=== PATIENT | female | born 1950 | race Caucasian/White ===

== ENCOUNTER 2016-12-21 07:16 | Inpatient (IN) ==
[2016-12-21] MEDS ORDERED: IOPAMIDOL 100 ML BOTTLE IV ONE (07:17)
--- NOTE | 2016-12-21 07:38 | Emergency Department Note ---
Abdominal Pain HPI - General Chief Complaint: Abdominal Pain Stated Complaint: Abdominal pain Time Seen by Provider: 12/21/16 07:28 Source: patient Mode of arrival: ambulatory Limitations: no limitations - History of Present Illness HPI Narrative: 56-year-old female with a 2 day history of abdominal pain and constipation. Having a small amount of diarrhea and very hard stools small amount. Excruciatingly painful to have a bowel movement. History of hemorrhoids. - Related Data Home Medications Medication Instructions Recorded Confirmed Cetirizine HCl [24Hour Allergy] 10 mg PO HS 12/21/16 12/21/16 Insulin Glargine, Human [Lantus] 17 unit SC BID 12/21/16 12/21/16 Oxybutynin Chloride [Ditropan] 5 mg PO TID 12/21/16 12/21/16 metFORMIN [Glucophage] 500 mg PO BIDCC 12/21/16 12/21/16 Allergies Allergy/AdvReac Type Severity Reaction Status Date / Time codeine AdvReac Nausea Verified 12/21/16 07:20 Review of Systems All systems ED: reviewed and negative except as stated. Abdominal Pain PMH - Past Medical History Attestation: Yes: The following information was validated with the patient. Medical history: Reports: diabetes, other (Pancreatitis, urinary incontinence) Surgical history ED: Reports: cholecystectomy - Social History Smoking status: Current some day smoker Drug use: Reports: marijuana Physical Exam Some distress secondary to abdominal pain. Conjunctive are clear sclerae nonicteric. No nasal discharge or congestion. Oropharynx pink and moist. Heart is regular rate and rhythm no murmurs appreciated. Lungs clear to auscultation bilaterally without wheezes rales rhonchi or respiratory distress. Abdomen soft mildly diffusely tender but especially suprapubic. Rectal exam shows several large extra hemorrhoids none of which are actively bleeding. No pedal edema. +2 radial pulse. Alert and oriented - General Limitations: no limitations Course Vital Signs Temperature 97.9 F 12/21/16 07:17 Pulse Rate 97 H 12/21/16 07:17 Respiratory Rate 18 12/21/16 07:17 Blood Pressure 177/73 12/21/16 07:17 Pulse Oximetry (%) 99 12/21/16 07:17 Temperature 97.9 F 12/21/16 07:17 Pulse Rate 97 H 12/21/16 07:17 Respiratory Rate 18 12/21/16 07:17 Blood Pressure 177/73 12/21/16 07:17 Pulse Oximetry (%) 99 12/21/16 07:17 Abdominal Pain - Radiology Data Radiology results reviewed: Yes I reviewed the patient's radiology results. X-ray of the abdomen 2 views shows copious stool but normal bowel gas pattern Disposition Pt seen by LPN HOME HEALTH/PA only: No (MD only) Summary: Initially treated with lidocaine jelly topically and attempted manual disimpaction by nursing staff but there was not a significant amount of stool in the rectal vault. Nursing reports that it was like popcorn residue on the inside the rectal vault. So, enema was attempted. She is sitting on bedside commode currently. Because of the severe amount of pain that she is in were going to go ahead and start IV fluids, do pain medicine, get laboratory and a CT scan of the abdomen and pelvis make sure not missing anything. These are ordered pending at shift change. Patient will be checked out to Dr. Jay Huitron for further evaluation and care. Disposition: Still a Patient Condition: Fair Referrals: Gerard Meyer MD [Primary Care Provider] -
[2016-12-21] MEDS ORDERED: LIDOCAINE JEL 2% 1 TUBE 30GM TOPICAL ONE (07:40)
[2016-12-21] MEDS ORDERED: MINERAL OIL 1 DOSE ENEMA PR ONE (07:40)
[2016-12-21] MEDS ORDERED: FLEETS ADULT ENEMA PR ONE (08:19)
[2016-12-21] MEDS ORDERED: 0.9 % SODIUM CHLORIDE 1,000 ML IV ONE ×3 (08:28→14:30)
--- NOTE | 2016-12-21 08:31 | XRay Report ---
CLINICAL INFORMATION: Constipation. Abdominal pain. TECHNIQUE: Supine and upright abdomen COMPARISON: None. FINDINGS: Gas and fecal material within the colon. No dilated gas-filled small bowel. No air-fluid levels. No pneumoperitoneum. No biliary or portal venous gas. No pneumatosis. There are surgical clips in the right upper abdominal quadrant. There are endovascular occlusion coils in the mid abdomen IMPRESSION: Negative abdomen Interpreted and Authenticated by: Pineda Mcleod 12/21/16
[2016-12-21] MEDS ORDERED: KETOROLAC 30 MG/ML VIAL IV ONE (08:34)
[2016-12-21] MEDS ORDERED: INSULIN REGULAR, HUMAN 1 UNIT/0.01 ML UNIT ONE (08:59)
[2016-12-21 09:17] LABS: Basophils # (Auto) 0 K/mcL (0.0-0.3); Basophils % (Auto) 0.3 % (0.0-2.0); Eosinophils # (Auto) 0 K/mcL (0.0-0.7); Eosinophils % (Auto) 0.3 % (0.0-7.0); Granulocytes % (Auto) 83.8 % (38.0-78.0); Lymphocytes # (Auto) 1.7 K/mcL (1.5-4.8); Lymphocytes % (Auto) 13.3 % (15.5-49.0); Mean Cell Volume 86.7 fL (80.0-100.0); Mean Corpuscular HGB Conc 33.8 g/dL (31.0-36.0); Mean Corpuscular Hemoglobin 29.3 pg (26.0-34.0); Monocytes # (Auto) 0.3 K/mcL (0.1-0.9); Monocytes % (Auto) 2.3 % (1.0-12.0); Platelet Count 294 K/mcL (140-440)
[2016-12-21 09:38] LABS: ALT/SGPT 9 U/l (0-40); Albumin 4.7 gm/dL (3.2-5.2); Albumin/Globulin Ratio 1.1 (1.0-2.3); Alkaline Phosphatase 158 U/L (39-117); Blood Urea Nitrogen 10 mg/dl (8-23); Lipase 19 U/L (7-60); Magnesium 1.8 mg/dL (1.6-2.5)
[2016-12-21 10:13] LABS: C-Reactive Protein 1.2 mg/dl (0.0-0.8)
--- NOTE | 2016-12-21 11:30 | Cat Scan Report ---
CLINICAL INFORMATION: Abdominal pain. Severe constipation. COMPARISON: Plain film examination dated 12/21/2016 TECHNIQUE: Axial images were obtained through the abdomen and pelvis. Sagittally and coronally reformatted images. 80 mL nonionic contrast material injected intravenously. Oral contrast material was given FINDINGS: Lung bases are negative. No parenchymal infiltrate or mass. No pleural fluid. No pericardial fluid. Negative liver. No focal intrahepatic abnormality. Liver contour is smooth. No evidence for cirrhosis. No hepatic mass. Gallbladder has been removed. Common bile duct is dilated to 10 mm. No detectable choledocholithiasis. No intrahepatic bile duct dilatation. Negative spleen. No splenomegaly. Normal enhancement of portal vein. Splenic vein is not well visualized Pancreas is poorly visualized. Findings suggest previous partial pancreatectomy. There are surgical clips and endovascular occlusion coils present. Negative adrenal glands. Kidneys are negative. No solid or cystic mass. No hydronephrosis. No calculi. There is mild cortical irregularity bilaterally may indicate chronic bilateral nephritis. Uterus is present. No adnexal mass. There is prominent fecal material within the rectum. Findings may indicate distal colonic, rectal impaction. Descending colon, transverse colon and ascending colon are negative. No abnormal fecal volume. No diverticulitis. No appendicitis. Small bowel is negative. No mechanical small bowel obstruction. Dominant aorta is negative. No retroperitoneal or mesenteric lymphadenopathy. No inguinal or abdominal wall hernia. Degenerative disc disease at L5-S1. No lumbar compression fractures. No sacral or pelvic abnormality. IMPRESSION: 1. Increased fecal material in the rectum. Findings are consistent with rectal impaction. Colon is otherwise negative. Normal fecal volume within the ascending colon, transverse colon, descending colon 2. Mildly dilated common bile duct. Previous cholecystectomy. No intrahepatic bile duct dilatation. Interpreted and Authenticated by: Pineda Mcleod 12/21/16
[2016-12-21 11:56] LABS: Appearance,Urine CLEAR; Bacteria,Urine 0 /hpf (0); Bilirubin,Urine NEG (NEG); Color,Urine STRAW; Glucose,Urine (UA) >=500 mg/dL (NEG); Leukocyte Esterase,Urine NEG /uL (NEG); Nitrate,Urine NEG (NEG); Protein,Urine 100 mg/dL (NEG); Specific Gravity,Urine 1.029 (1.000-1.035); Urine Blood NEG mg/dL (<0.03); Urine RBC 1 /hpf (0-1); Urine Squamous Epithelial Cell < 1 /hpf (0-4); Urine WBC 2 /hpf (0-4); Urobilinogen,Urine NEG (NEG)
--- NOTE | 2016-12-21 12:44 | Emergency Department Note ---
Abdominal Pain HPI - General Chief Complaint: Abdominal Pain Stated Complaint: Abdominal pain Time Seen by Provider: 12/21/16 07:28 Source: patient Mode of arrival: ambulatory Limitations: no limitations - Related Data Home Medications Medication Instructions Recorded Confirmed Cetirizine HCl [24Hour Allergy] 10 mg PO HS 12/21/16 12/21/16 Insulin Glargine, Human [Lantus] 17 unit SC BID 12/21/16 12/21/16 Oxybutynin Chloride [Ditropan] 5 mg PO TID 12/21/16 12/21/16 metFORMIN [Glucophage] 500 mg PO BIDCC 12/21/16 12/21/16 Allergies Allergy/AdvReac Type Severity Reaction Status Date / Time codeine AdvReac Nausea Verified 12/21/16 07:20 Abdominal Pain PMH - Past Medical History Medical history: Reports: diabetes, other (Pancreatitis, urinary incontinence) - Social History Drug use: Reports: marijuana Physical Exam - General Limitations: no limitations Course Course Narrative: Patient given fleets enema in ED. She was subsequently incontinent of stool, had a few small popcorn size stool particles come out. She had a second bowel movement in the radiology department however on the CT scan still did have moderate amount of stool, significant left lower abdominal discomfort and elevated lactate level. She is being admitted this point secondary to high lactate level and elevated white blood cell count. Discussed with Dr. Altamirano Vital Signs Temperature 97.9 F 12/21/16 07:17 Pulse Rate 97 H 12/21/16 07:17 Respiratory Rate 18 12/21/16 07:17 Blood Pressure 177/73 12/21/16 07:17 Pulse Oximetry (%) 99 12/21/16 07:17 Temperature 97.9 F 12/21/16 07:17 Pulse Rate 83 12/21/16 12:01 Respiratory Rate 25 H 12/21/16 12:01 Blood Pressure 169/58 12/21/16 12:01 Pulse Oximetry (%) 93 12/21/16 12:01 Abdominal Pain - [facility] Narrative Medical decision making narrative: impressions abdominal pain left lower quadrant with elevated white blood cell co. - Lab Data Result diagrams: 12/21/16 08:48 12/21/16 08:48 Lab Results 12/21/16 12/21/16 12/21/16 Range/Units 08:48 08:48 08:48 WBC 12.9 H (4.5-11.0) K/mcL RBC 5.10 (4.00-5.20) M/mcL Hgb 14.9 (12.0-15.0) g/dL Hct 44.2 (36.0-48.0) % POC Hct TNP MCV 86.7 (80.0-100.0) fL MCH 29.3 (26.0-34.0) pg MCHC 33.8 (31.0-36.0) g/dL RDW 13.0 (11.5-14.5) % Plt Count 294 (140-440) K/mcL MPV 8.2 (7.4-10.4) fL Gran % 83.8 H (38.0-78.0) % Lymph % (Auto) 13.3 L (15.5-49.0) % [place] % (Auto) 2.3 (1.0-12.0) % Eos % (Auto) 0.3 (0.0-7.0) % Baso % (Auto) 0.3 (0.0-2.0) % Gran # 10.8 H (1.8-8.0) K/mcL Lymph # (Auto) 1.7 (1.5-4.8) K/mcL [place] # (Auto) 0.3 (0.1-0.9) K/mcL Eos # (Auto) 0 (0.0-0.7) K/mcL Baso # (Auto) 0 (0.0-0.3) K/mcL VBG Lactic Acid 4.7 H* (0.5-2.2) mmol/L POC Sodium TNP Sodium 135 (133-145) mmol/L POC Potassium TNP Potassium 3.6 (3.3-5.1) mmol/L POC Chloride TNP Chloride 94 L (96-108) mmol/L Carbon Dioxide 17 L (22-30) mmol/L POC Total CO2 TNP Anion Gap 24.0 H (8-16) POC BUN TNP BUN 10 (8-23) mg/dl Creatinine 0.8 (0.6-1.1) mg/dl POC Creatinine TNP GFR Calculation 77 Glucose 397 H (70-105) mg/dL POC Glucose TNP Calcium 9.4 (8.6-10.4) mg/dl POC WB Ioniz Calcium TNP Magnesium 1.8 (1.6-2.5) mg/dL Total Bilirubin 0.8 (0.0-1.0) mg/dL AST 11 (0-37) U/l ALT 9 (0-40) U/l Alkaline Phosphatase 158 H (39-117) U/L C-Reactive Protein (0.0-0.8) mg/dl Total Protein 8.9 H (5.9-8.4) gm/dL Albumin 4.7 (3.2-5.2) gm/dL Globulin 4.2 H (2.2-3.7) gm/dL Albumin/Globulin Ratio 1.1 (1.0-2.3) Lipase 19 (7-60) U/L Urine Color Urine Appearance Urine pH (5.0-9.0) Ur Specific [place] (1.000-1.035) Urine Protein (NEG) mg/dL Urine Glucose (UA) (NEG) mg/dL Urine Ketones (NEG) mg/dL Urine Occult Blood (<0.03) mg/dL Urine Nitrate (NEG) Urine Bilirubin (NEG) mg/dL Urine Urobilinogen (NEG) mg/dL Ur Leukocyte Esterase (NEG) /uL Urine RBC (0-1) /hpf Urine WBC (0-4) /hpf Ur Squamous Epith Cells (0-4) /hpf Urine Bacteria (0) /hpf Ur Culture Indicated? 12/21/16 12/21/16 Range/Units 08:48 11:22 WBC (4.5-11.0) K/mcL RBC (4.00-5.20) M/mcL Hgb (12.0-15.0) g/dL Hct (36.0-48.0) % POC Hct MCV (80.0-100.0) fL MCH (26.0-34.0) pg MCHC (31.0-36.0) g/dL RDW (11.5-14.5) % Plt Count (140-440) K/mcL MPV (7.4-10.4) fL Gran % (38.0-78.0) % Lymph % (Auto) (15.5-49.0) % [place] % (Auto) (1.0-12.0) % Eos % (Auto) (0.0-7.0) % Baso % (Auto) (0.0-2.0) % Gran # (1.8-8.0) K/mcL Lymph # (Auto) (1.5-4.8) K/mcL [place] # (Auto) (0.1-0.9) K/mcL Eos # (Auto) (0.0-0.7) K/mcL Baso # (Auto) (0.0-0.3) K/mcL VBG Lactic Acid (0.5-2.2) mmol/L POC Sodium Sodium (133-145) mmol/L POC Potassium Potassium (3.3-5.1) mmol/L POC Chloride Chloride (96-108) mmol/L Carbon Dioxide (22-30) mmol/L POC Total CO2 Anion Gap (8-16) POC BUN BUN (8-23) mg/dl Creatinine (0.6-1.1) mg/dl POC Creatinine GFR Calculation Glucose (70-105) mg/dL POC Glucose Calcium (8.6-10.4) mg/dl POC WB Ioniz Calcium Magnesium (1.6-2.5) mg/dL Total Bilirubin (0.0-1.0) mg/dL AST (0-37) U/l ALT (0-40) U/l Alkaline Phosphatase (39-117) U/L C-Reactive Protein 1.2 H (0.0-0.8) mg/dl Total Protein (5.9-8.4) gm/dL Albumin (3.2-5.2) gm/dL Globulin (2.2-3.7) gm/dL Albumin/Globulin Ratio (1.0-2.3) Lipase (7-60) U/L Urine Color Straw Urine Appearance Clear Urine pH 6.0 (5.0-9.0) Ur Specific [place] 1.029 (1.000-1.035) Urine Protein 100 A (NEG) mg/dL Urine Glucose (UA) >=500 A (NEG) mg/dL Urine Ketones 20 A (NEG) mg/dL Urine Occult Blood Neg (<0.03) mg/dL Urine Nitrate Neg (NEG) Urine Bilirubin Neg (NEG) mg/dL Urine Urobilinogen Neg (NEG) mg/dL Ur Leukocyte Esterase Neg (NEG) /uL Urine RBC 1 (0-1) /hpf Urine WBC 2 (0-4) /hpf Ur Squamous Epith Cells < 1 (0-4) /hpf Urine Bacteria 0 (0) /hpf Ur Culture Indicated? No Disposition Pt seen by [employer]PL[employer]LECTR[employer] REPAIRER/PA only: No Disposition: Xfer As Outpt/Obs ([facility]) Condition: Fair Referrals: Gerard Meyer MD [Primary Care Provider] -
[2016-12-21] MEDS ORDERED: metroNIDAZOLE 500 MG/100 ML BAG IV SCH (13:45)
[2016-12-21] MEDS ORDERED: CIPROFLOXACIN 400 MG/200 ML BAG IV SCH (13:45)
--- NOTE | 2016-12-21 14:03 | Internal Med History&Physical ---
Medical - H&P: HPI Patient information: Note initiated : 12/21/16 at 1:58 pm Service Date, if different from initiated Date: [] Patient: Lisette Guzman a 66 y/o F admitted on for Abd Pain. Chief Complaint: [] History of present illness: Ms. Guzman is a 66 year old F with h/o DM, presents to the ER with complaints of pain in the rectal region x 2 days and inability to pass stools The patient notes that she was doing well uptill 2 days ago, she then started having sever pain in the rectal region, pain was severe, worse with bowel movements, sharp non radiating. The pain progressively got worse and she therefore presented to the ER for further evaluation. She was unable to pass any stools as per her due to the rectal pain. In the ER the patient had a rectal exam done which showed some popcorn like stools, a lidocaine jelly given and enema given with not much relive. Labs show mildly elevated wbc count, elevated lactic acid to 4.7, and High anion gap. Her CT Scan was done which was negative except for stools in the rectal valut. The patient admits to h/o hemorrhoids, notes she had a neg colonoscopy 1 year ago. NO h/o trauma to the rectal region, denies any history of constipation in the past. The patient was admitted to the hospital in light of lactic acidosis and elevated wbc count. Her UA is neg, CXR pending, but she is not hpoxic not does report any cough. Review of systems: CONSTITUTIONAL: No weight loss, admits to subjective sensation of fever and chills. HEENT: Eyes: No visual loss, blurred vision, double vision or yellow sclerae. Ears, Nose, Throat: No hearing loss, sneezing, congestion, runny nose or sore throat. SKIN: No rash or itching. CARDIOVASCULAR: No chest pain, chest pressure or chest discomfort. No palpitations or edema. RESPIRATORY: No shortness of breath, cough or sputum. GASTROINTESTINAL: No nausea, vomiting or diarrhea. admits to stool seepage, constipation and rectal pain. GENITOURINARY: Denies Burning on urination. Blood in urine, or foul smelling urine NEUROLOGICAL: No headache, dizziness, syncope, paralysis, tremors, numbness or tingling in the extremities. No change in bowel or bladder control. MUSCULOSKELETAL: No muscle, back pain, joint pain or stiffness. HEMATOLOGIC: No bleeding or bruising. No enlarged nodes PSYCHIATRIC: Depression present after loss of daughter and partner. ENDOCRINOLOGIC: No reports of sweating, cold or heat intolerance. No polyuria or polydipsia. ALLERGIES: No hives, eczema or rhinitis. Skin: No rash, no jaundice, cyanosis or pallor. Medical - H&P: PMH Medical history: DM h/o pancreattiis No CAD< No CVA Surgical history: h/o cholecystectomy. Pertinent family history: Aunt and grandfather with DM, Daughter with Ca breast, Sister with Ca Breast. Social history: Ex smoker, quit 20 yrs ago denies etoh, admits to daily use of THC. no other substances lives by self. Medical - H&P: Meds Home Medications Medication Instructions Recorded Confirmed Type Cetirizine HCl [24Hour Allergy] 10 mg PO HS 12/21/16 12/21/16 History Insulin Glargine, Human [Lantus] 17 unit SC BID 12/21/16 12/21/16 History Oxybutynin Chloride [Ditropan] 5 mg PO TID 12/21/16 12/21/16 History metFORMIN [Glucophage] 500 mg PO BIDCC 12/21/16 12/21/16 History Allergies Allergy/AdvReac Type Severity Reaction Status Date / Time codeine AdvReac Nausea Verified 12/21/16 07:20 Medical - H&P: Exam - Constitutional Vitals: Temp Pulse Resp BP Pulse Ox 97.9 F 77 17 176/68 98 12/21/16 07:17 12/21/16 13:01 12/21/16 13:01 12/21/16 13:01 12/21/16 13:01 Exam: GENERAL: The patient is a well-developed, well-nourished in mild distress . Is alert and oriented x3. VITAL SIGNS: Reviewed and as noted elsewhere. HEENT: Head is normocephalic and atraumatic. Extraocular muscles are intact. Pupils are equal, round, and reactive to light. Nares appeared normal. Mouth without lesions . Mucous membranes are dry NECK: Normal to inspection, Supple, No lymphadenopathy or thyromegaly. LUNGS: Air entry equal on both sides, no wheezing, crackles or rhonchi noted. No accessory muscles of respiration, mildly tachypneic, HEART: Regular rate and rhythm normal, S1 and S2 heard, no Gallop, S3 or Rub Noted, No Gross murmur heard. ABDOMEN: Soft, nontender, and nondistended. Positive bowel sounds. No hepatosplenomegaly was noted. Rectal Exam: soft stools with some popcorn like fragments, hemorrhorids noted, some blood on the examining finger, Patient did not allow complete exam, unable to determine if fissure is present. EXTREMITIES: No cyanosis, clubbing, rash, lesions or edema. NEUROLOGIC: Cranial nerves II through XII are grossly intact. Motor and Sensory System Grossly Intact PSYCHIATRIC: Normal affect, Normal Mood. Appropriate Behavior. SKIN: No ulceration or wounds noted, No jaundice, No rash noted. Medical - H&P: Reslt - Labs CBC & Chem 7: 12/21/16 08:48 12/21/16 08:48 Labs: Short CBC 12/21/16 Range/Units 08:48 WBC 12.9 H (4.5-11.0) K/mcL Hgb 14.9 (12.0-15.0) g/dL Hct 44.2 (36.0-48.0) % Plt Count 294 (140-440) K/mcL BMP 12/21/16 08:48 Sodium 135 Potassium 3.6 Chloride 94 L Carbon Dioxide 17 L BUN 10 Creatinine 0.8 Glucose 397 H Calcium 9.4 Liver Function 12/21/16 Range/Units 08:48 Total Bilirubin 0.8 (0.0-1.0) mg/dL AST 11 (0-37) U/l ALT 9 (0-40) U/l Alkaline Phosphatase 158 H (39-117) U/L Albumin 4.7 (3.2-5.2) gm/dL Urine 12/21/16 Range/Units 11:22 Urine Color Straw Urine Appearance Clear Urine pH 6.0 (5.0-9.0) Ur Specific [place] 1.029 (1.000-1.035) Urine Protein 100 A (NEG) mg/dL Urine Glucose (UA) >=500 A (NEG) mg/dL - ABG Interpretation -: ABG interpreted by me Interpretation: respiratory alkalosis, metabolic acidosis (high anion gap) Medical - H&P: A/P - Narrative A/P Narrative: A/P High anion gap Acidosis: Due to lactic acid, ABG done shows lactic acid of 3.5, in the ER was 4.7 (fluids were given) Lactic acidosis. : Etiology infection, perianal region. IV fluids, blood cx obtained, CXR ordered, IV cipro and flagyl for now. Respiratory alkalosis: Noted on abg due to pain Rectal pain: LIkely from fissure or hemorrhoids. Hemorrhoids vs Anal Fissure: Topical lidocaine and NTG for now, Gen Surgery eval to see if any surgical intervention needed. Constipation: Medical treatment, no obstruction on CT Scan, senna, Glycerin suppositories. Diabetes : Resume insulin, sliding scale. Elevated tprot likely from dehydratio, will monitor. DVT hep sq Diet carb restricted Full code.
[2016-12-21] MEDS ORDERED: metroNIDAZOLE 500 MG/100 ML BAG IV ONE (14:04)
[2016-12-21] MEDS ORDERED: IPRATROPIUM/ALBUTEROL 3 ML AMPUL.NEB NEB PRN (14:30)
[2016-12-21] MEDS ORDERED: GLYCERIN, ADULT 1 SUPP.RECT PR ONE (14:30)
[2016-12-21] MEDS ORDERED: DEXTROSE 50% 50 ML VIAL IV PRN (14:30)
[2016-12-21] MEDS ORDERED: ZOLPIDEM 5 MG TABLET PO PRN (14:30)
[2016-12-21] MEDS ORDERED: ONDANSETRON 4 MG/2 ML VIAL IV PRN (14:30)
[2016-12-21] MEDS ORDERED: MAGNESIUM HYDROXIDE 30 ML ORAL.SUSP PO PRN (14:30)
[2016-12-21] MEDS ORDERED: NALOXONE HCL 0.4 MG/ML VIAL IV PRN (14:30)
[2016-12-21] MEDS ORDERED: ACETAMINOPHEN 325 MG TABLET PO PRN (14:30)
[2016-12-21] MEDS ORDERED: NITROGLYCERIN 0.2 MG/HR PATCH TOPICAL SCH (15:00)
--- NOTE | 2016-12-21 15:24 | General Surgery Consult Note ---
History of Present Illness Patient information: Note initiated : 12/21/16 at 3:22 pm Service Date, if different from initiated Date: [] Patient: Lisette Guzman 66 y/o F admitted on 12/21/16 for Abd Pain. Chief Complaint: [] Reason for consult: other (constipation) History of present illness: 66-year-old female admitted with severe constipation; metabolic acidosis; and mild leukocytosis. The patient has a 3 day history of severe constipation. She states that she had some fever and chills. Her last regular bowel movement was Tuesday. She has not had rectal bleeding. She denies abdominal pain nausea or vomiting. She has not had any difficulty with urination. She has not had rectal bleeding in the past. She is admitted for evaluation and treatment. Review of Systems - Constitutional chills, fever(s), malaise - EENT Nose, mouth and throat: no abnormal hearing, no dysphagia, no hoarseness, no vertigo - Cardiovascular no chest pain at rest, no chest pain with activity, no dyspnea on exertion, no palpatations, no rapid heart rate, no syncope - Respiratory dyspnea on exertion, no wheezing - Gastrointestinal abdominal pain, bloating, change in bowel habits, constipation, cramping, early satiety, nausea - Genitourinary Genitourinary: no difficulty voiding, no urinary frequency, no urinary incontinence - Integumentary no change in hair, no changing lesions, no lesions, no pruritus, no rash - Neurological no confusion, no convulsions, no dizziness, no headache(s), no numbness, no syncope, no vertigo - Psychiatric no anxiety, no confusion, no depression - Endocrine fatigue, no palpitations - Hematologic/Lymphatic no easy bleeding, no easy bruising, no lymphadenopathy - Allergic/Immunologic no tongue swelling, no throat swelling, no itchy eyes, no uticaria, no wheezing , no lip swelling Past History Past medical history: Diabetes mellitus Denies heart, lung or kidney disease Past surgical history: Cholecystectomy with stent placement 10 years ago Hysterectomy Past family history: Mother in her 50s of unknown cause Father at age 82 of heart disease Past social history: Retired caregiver Denies tobacco use Frequent marijuana use Denies alcohol use Medications and Allergies Home Medications Medication Instructions Recorded Confirmed Type Cetirizine HCl [24Hour Allergy] 10 mg PO HS 12/21/16 12/21/16 History Insulin Glargine, Human [Lantus] 17 unit SC BID 12/21/16 12/21/16 History Oxybutynin Chloride [Ditropan] 5 mg PO TID 12/21/16 12/21/16 History metFORMIN [Glucophage] 500 mg PO BIDCC 12/21/16 12/21/16 History Allergies Allergy/AdvReac Type Severity Reaction Status Date / Time codeine AdvReac Nausea Verified 12/21/16 07:20 Exam Temp Pulse Resp BP Pulse Ox 97.9 F 97 H 29 H 189/73 99 12/21/16 14:20 12/21/16 14:20 12/21/16 14:20 12/21/16 14:20 12/21/16 14:20 - General physical appearance well developed, well nourished, moderate distress - Eyes PERRL, normal ocular movement. negative: icteric - ENT normal pinna, normal nares, normal mucosa, no hearing loss, no congestion, poor senior living - Head Head exam IM: Present: atraumatic, normal inspection, normocephalic - Neck no masses, no bruits, trachea midline, no lymphadectomy, no venous distension - Cardiovascular Cardiovascular exam IM: Present: +S1, +S2. Absent: normal rate and rhythm, irregular rhythm, JVD, systolic murmur - Respiratory normal expansion, normal respiratory effort, clear to percussion, clear to auscultation - Abdomen Abdomen: Present: soft, tender (Mild suprapubic tenderness but no masses), bowel sounds Hernia: Present: none - Genitourinary Present: normal external genitalia - Integumentary Present: no rash, no growths, no abnormal pigmentation - Neurologic Present: normal coordination, normal sensation - Musculoskeletal Present: normal gait, normal posture - Psychiatric Present: oriented to time, oriented to person, oriented to place, speech is normal, memory intact Results - Labs 12/21/16 08:48 12/21/16 08:48 All other labs normal. Assessment and Plan (1) Constipation by outlet dysfunction milk and molasses enema now Gastrografin enema in the morning Continue antibiotics and hydration Status: Acute (2) Diabetes mellitus Status: Acute (3) Metabolic acidosis Continue antibiotics and hydration Status: Acute
--- NOTE | 2016-12-21 15:26 | XRay Report ---
CLINICAL INFORMATION: Leukocytosis TECHNIQUE: AP upright portable chest x-ray COMPARISON: None. FINDINGS: Lungs are negative. No focal pulmonary parenchymal infiltrate or mass. Heart size and vascularity are normal. No pulmonary edema. No pulmonary congestion. Radha and mediastinum are negative. No pleural fluid IMPRESSION: Negative AP portable chest x-ray Interpreted and Authenticated by: Pnieda Mcleod 12/21/16
[2016-12-21] MEDS: CIPROFLOXACIN 400 MG/200 ML BAG IV SCH ×2 (15:42→23:58)
[2016-12-21] MEDS: 0.9 % SODIUM CHLORIDE 10 ML SYRINGE IV SCH ×2 (15:44→22:48)
[2016-12-21] MEDS: NITROGLYCERIN 1 GM OINT.TOP TOPICAL SCH ×2 (18:21→22:48)
[2016-12-21] MEDS: LIDOCAINE JEL 2% 1 TUBE 30GM TOPICAL SCH ×2 (18:21→22:47)
[2016-12-21] MEDS: OXYBUTYNIN CHLORIDE 5 MG TABLET PO SCH ×2 (18:21→22:47)
[2016-12-21] MEDS: INSULIN LISPRO 1 UNIT/0.01 ML UNIT SQ SCH ×2 (18:22→22:49)
[2016-12-21] MEDS: HEPARIN 5,000 UNIT/ML VIAL SQ SCH ×2 (18:26→22:47)
[2016-12-21] MEDS: 0.9 % SODIUM CHLORIDE 1,000 ML IV SCH (19:22)
[2016-12-21] MEDS ORDERED: cloNIDine HCL 0.1 MG TABLET PO PRN (21:46)
[2016-12-21] MEDS: metroNIDAZOLE 500 MG/100 ML BAG IV SCH (22:47)
[2016-12-21] MEDS: SENNOSIDES 1 TABLET PO SCH (22:47)
[2016-12-21] MEDS: CETIRIZINE 10 MG TABLET PO SCH (22:47)
[2016-12-21] MEDS: INSULIN GLARGINE, HUMAN 1 UNIT/0.01 ML SQ SCH (22:48)
[2016-12-22] MEDS: metroNIDAZOLE 500 MG/100 ML BAG IV SCH ×3 (05:15→23:19)
[2016-12-22] MEDS: 0.9 % SODIUM CHLORIDE 1,000 ML IV SCH ×3 (05:15→12:55)
[2016-12-22 06:03] LABS: Basophils # (Auto) 0 K/mcL (0.0-0.3); Basophils % (Auto) 0.3 % (0.0-2.0); Eosinophils # (Auto) 0 K/mcL (0.0-0.7); Eosinophils % (Auto) 0.4 % (0.0-7.0); Granulocytes % (Auto) 79.1 % (38.0-78.0); Lymphocytes # (Auto) 1.4 K/mcL (1.5-4.8); Mean Cell Volume 86.8 fL (80.0-100.0); Mean Corpuscular HGB Conc 34.1 g/dL (31.0-36.0); Mean Corpuscular Hemoglobin 29.6 pg (26.0-34.0); Monocytes # (Auto) 0.4 K/mcL (0.1-0.9); Monocytes % (Auto) 4.2 % (1.0-12.0); Platelet Count 251 K/mcL (140-440); RBC 4.32 M/mcL (4.00-5.20); Red Cell Distribution Width 13.5 % (11.5-14.5)
[2016-12-22] MEDS: 0.9 % SODIUM CHLORIDE 10 ML SYRINGE IV SCH ×2 (06:14→15:37)
[2016-12-22 06:51] LABS: Estimated Average Glucose(eAG) 209 mg/dL; Hemoglobin A1C 8.9 % HGB (4.0-6.0)
[2016-12-22 06:53] LABS: ALT/SGPT 7 U/l (0-40); Albumin 4.1 gm/dL (3.2-5.2); Albumin/Globulin Ratio 1.3 (1.0-2.3); Alkaline Phosphatase 93 U/L (39-117); Bilirubin,Direct < 0.2 mg/dL (0.0-0.3); Blood Urea Nitrogen 8 mg/dl (8-23); Gamma Glutamyl Transpeptidase 14 U/L (5-36); Magnesium 1.6 mg/dL (1.6-2.5); Uric Acid 2.6 mg/dL (2.5-8.0)
[2016-12-22] MEDS ORDERED: INSULIN REGULAR, HUMAN 1 UNIT/0.01 ML UNIT SQ SCH (07:30)
[2016-12-22] MEDS ORDERED: POTASSIUM CHLORIDE 20 MEQ in DEXTROSE 5% IN WATER 250 ML IV ONE (07:30)
[2016-12-22] MEDS ORDERED: MAGNESIUM SULFATE 2 GM/50 ML BAG IV ONE (07:31)
[2016-12-22] MEDS: INSULIN LISPRO 1 UNIT/0.01 ML UNIT SQ SCH ×4 (08:55→21:00)
[2016-12-22] MEDS: NITROGLYCERIN 1 GM OINT.TOP TOPICAL SCH ×3 (09:38→20:30)
[2016-12-22] MEDS: LIDOCAINE JEL 2% 1 TUBE 30GM TOPICAL SCH ×3 (09:38→20:00)
[2016-12-22] MEDS: INSULIN GLARGINE, HUMAN 1 UNIT/0.01 ML SQ SCH (09:39)
[2016-12-22] MEDS ORDERED: DIATRIZOATE MEGLU/DIATRIZO SOD 30 ML BOTTLE PO ONE (12:17)
[2016-12-22] MEDS: CIPROFLOXACIN 400 MG/200 ML BAG IV SCH ×2 (12:54→20:27)
--- NOTE | 2016-12-22 13:51 | XRay Report ---
CLINICAL INFORMATION: History of constipation and impaction. Possible rectal or sigmoid lesion TECHNIQUE: Single contrast enema of the rectum, sigmoid, and distal descending colon performed. Water-soluble contrast material was utilized COMPARISON: CT scan dated 12/21/2016 FINDINGS: Patient is incontinent of stool. Despite this we obtained a technically adequate examination of the rectum, sigmoid colon, and distal descending colon. The rectum is normal. No rectal mass or stricture. Sigmoid colon is negative. No detectable mass. No diverticulosis or evidence for diverticulitis. There was mild spasm at the sigmoid rectal junction but this relaxed during examination. The balloon was deflated at the end of this examination with images obtained of the distal rectum and anus. There is no discrete mass. Overhead images were obtained which demonstrate grossly normal: In its entirety. The appendix is opacified. The transverse colon is not well distended IMPRESSION: Negative water soluble contrast enema of the distal descending colon, sigmoid colon, rectum, anus. Interpreted and Authenticated by: Pineda Mcleod 12/22/16
[2016-12-22] MEDS: NEUTRA PHOS 1 PACKET PO SCH (15:16)
[2016-12-22] MEDS: POTASSIUM CHLORIDE 20 MEQ TABLET PO SCH (15:17)
[2016-12-22] MEDS: OXYBUTYNIN CHLORIDE 5 MG TABLET PO SCH ×3 (15:19→20:29)
--- NOTE | 2016-12-22 15:29 | General Surgery Progress Note ---
Subjective Patient reports: feels better, pain is less, tolerating liquids well, flatus, bowel movement, afebrile Narrative: Note initiated : 12/22/16 at 3:27 pm Service Date, if different from initiated Date: [] Patient: Lisette Guzman 66 y/o F admitted on 12/21/16 for Abd Pain/Lactic Acidosis and Elevated WBC Count. Chief Complaint: [Patient feels better. She had multiple bowel movements with the enemas and more bowel movements after her Gastrografin contrast study. She denies chest pain or shortness of breath though she appears to be mildly tachypneic. She denies abdominal pain and she has not had nausea. She is passed flatus without difficulty. The Gastrografin contrast study was normal with normal rectum and sigmoid without any evidence of stricture or mass. Her serum lactate is down to 2.3. Her white count is normal.] Objective Temp Pulse Resp BP Pulse Ox 97.5 F 67 20 181/69 98 12/22/16 12:00 12/22/16 10:35 12/22/16 12:00 12/22/16 12:00 12/22/16 12:00 - Additional Data Intake & Output - Last 24 hours: Intake & Output 12/20/16 12/21/16 12/22/16 12/23/16 05:59 05:59 05:59 05:59 Intake Total 3900 / 3900 1567 / 1567 Output Total 700 / 700 200 / 200 Balance 3200 / 3200 1367 / 1367 Weight 126 lb - General physical appearance no distress, no pain - Eyes PERRL - ENT no congestion - Neck no venous distension - Respiratory clear to auscultation, other (Mild tachypnea at 20 breaths per minute) - Cardiovascular Cardiovascular exam: Present: normal rate and rhythm, RRR, +S1, +S2. Absent: JVD - Abdomen soft, non tender, distended (Abdomen is mildly distended with good active bowel sounds. She does not have any tenderness and there is no palpable mass) - Integumentary no rash, no growths, no abnormal pigmentation - Neurologic normal coordination, normal sensation - Musculoskeletal normal gait, normal posture - Psychiatric oriented to time - Labs 12/22/16 04:30 12/22/16 04:30 Diabetes panel 12/22/16 12/22/16 Range/Units 04:30 04:30 Sodium 133 (133-145) mmol/L Potassium 2.9 L* (3.3-5.1) mmol/L Chloride 95 L (96-108) mmol/L Carbon Dioxide 21 L (22-30) mmol/L BUN 8 (8-23) mg/dl Creatinine 0.6 (0.6-1.1) mg/dl Glucose 315 H (70-105) mg/dL Hemoglobin A1c 8.9 H (4.0-6.0) % HGB Calcium 8.0 L (8.6-10.4) mg/dl AST 10 (0-37) U/l ALT 7 (0-40) U/l Alkaline Phosphatase 93 (39-117) U/L Total Protein 7.3 (5.9-8.4) gm/dL Albumin 4.1 (3.2-5.2) gm/dL Triglycerides 425 H (<150) mg/dl Calcium panel 12/22/16 Range/Units 04:30 Calcium 8.0 L (8.6-10.4) mg/dl Phosphorus 1.7 L (2.7-4.5) mg/dL Albumin 4.1 (3.2-5.2) gm/dL Pituitary panel 12/22/16 Range/Units 04:30 Sodium 133 (133-145) mmol/L Potassium 2.9 L* (3.3-5.1) mmol/L Chloride 95 L (96-108) mmol/L Carbon Dioxide 21 L (22-30) mmol/L BUN 8 (8-23) mg/dl Creatinine 0.6 (0.6-1.1) mg/dl Glucose 315 H (70-105) mg/dL Calcium 8.0 L (8.6-10.4) mg/dl Adrenal panel 12/22/16 Range/Units 04:30 Sodium 133 (133-145) mmol/L Potassium 2.9 L* (3.3-5.1) mmol/L Chloride 95 L (96-108) mmol/L Carbon Dioxide 21 L (22-30) mmol/L BUN 8 (8-23) mg/dl Creatinine 0.6 (0.6-1.1) mg/dl Glucose 315 H (70-105) mg/dL Calcium 8.0 L (8.6-10.4) mg/dl Total Bilirubin 0.8 (0.0-1.0) mg/dL AST 10 (0-37) U/l ALT 7 (0-40) U/l Alkaline Phosphatase 93 (39-117) U/L Total Protein 7.3 (5.9-8.4) gm/dL Albumin 4.1 (3.2-5.2) gm/dL Assessment and Plan (1) Constipation by outlet dysfunction Status: Acute Assessment and plan: Constipation resolved with no evidence of distal rectal obstruction Current Visit: Yes (2) Diabetes mellitus Status: Acute Current Visit: Yes (3) Metabolic acidosis Status: Acute Assessment and plan: Metabolic acidosis is significantly improved Current Visit: Yes - Time Spent With Patient Total time spent is greater than 50% in coordination of care (as documented) at patient's floor/unit and/or counseling patient:
[2016-12-22] MEDS: HEPARIN 5,000 UNIT/ML VIAL SQ SCH ×2 (15:34→20:29)
--- NOTE | 2016-12-22 16:40 | Internal Med Progress Note ---
Medical - PN: Subj Patient information: Note initiated : 12/22/16 at 4:38 pm Service Date, if different from initiated Date: [] Patient: Lisette Guzman a 66 y/o F admitted on 12/21/16 for Abd Pain/Lactic Acidosis and Elevated WBC Count. Chief Complaint: [] Interval history: Ms. Guzman is a 66 year old F with h/o DM, presents to the ER with complaints of pain in the rectal region x 2 days and inability to pass stools The patient notes that she was doing well uptill 2 days ago, she then started having sever pain in the rectal region, pain was severe, worse with bowel movements, sharp non radiating. The pain progressively got worse and she therefore presented to the ER for further evaluation. She was unable to pass any stools as per her due to the rectal pain. In the ER the patient had a rectal exam done which showed some popcorn like stools, a lidocaine jelly given and enema given with not much relive. Labs show mildly elevated wbc count, elevated lactic acid to 4.7, and High anion gap. Her CT Scan was done which was negative except for stools in the rectal valut. The patient admits to h/o hemorrhoids, notes she had a neg colonoscopy 1 year ago. NO h/o trauma to the rectal region, denies any history of constipation in the past. The patient was admitted to the hospital in light of lactic acidosis and elevated wbc count. Her UA is neg, CXR pending, but she is not hpoxic not does report any cough. 12/22Pt seen examined, had few stool movements after enema and barium study, which was negative. still has pain in the perianal region but better than yesterday, able to tolerate po well, no new concerns. Surgery help appreciated. Pertinent ROS: Denies headache, dizziness Denies chest pain, palpitations Denies cough or shortness of breath Denies abdominal pain, nausea or vomiting. (rectal/ anal pain present but improved) - Constitutional Vitals: Vital Signs Temp Pulse Resp BP Pulse Ox 98.4 F 67 20 163/79 97 12/22/16 16:00 12/22/16 10:35 12/22/16 16:00 12/22/16 16:00 12/22/16 16:00 Period Temp Pulse Resp BP Sys/Watson Pulse Ox Last 24 Hr 97.2 F-98.5 F 67-87 18-24 163-195/69-87 97-98 Intake and Output 12/22/16 12/22/16 12/22/16 05:59 13:59 21:59 Intake Total 1700 / 1700 767 / 767 900 / 900 Output Total 550 / 550 200 / 200 Balance 1150 / 1150 567 / 567 900 / 900 Intake & Output: Intake & Output 12/22/16 12/22/16 12/22/16 05:59 13:59 21:59 Intake Total 1700 / 1700 767 / 767 900 / 900 Output Total 550 / 550 200 / 200 Balance 1150 / 1150 567 / 567 900 / 900 Intake: IV 1300 / 1300 767 / 767 Sodium Chloride 0.9% 1, 1000 / 1000 667 / 667 000 ml @ 100 mls/hr IV . Q10H PAT Rx#:[id number] Oral 400 / 400 900 / 900 Output: Urine/Stool Mix 350 / 350 Stool 200 / 200 200 / 200 Other: # Bowel Movements 1 1 1 # of times incontinent of 1 1 Bowels Exam: Constitutional; Afebrile, cooperative, alert, not in distress. Eyes- No icterus, , No periorbital swelling Ears- Ext ear normal, hearing normal to conversation. Neck- Midline trachea, supple Respiratory system: Air Entry equal on both sides, No crackles or wheezing, no rhonchi. CVS- Rate rhythm regular, S1,S2 heard, no gallop, no rub. Abdomen- Soft nontender abdomen, no organomegaly, no tenderness, no guarding or rigidity, EMERGENCY MEDICINE- AOOx3, moving all extremities, no gross focal deficit noted. Medical - PN: Obj Da - Labs CBC & Chem 7: 12/22/16 04:30 12/22/16 04:30 Labs: Abnormal Lab Results 12/22/16 12/22/16 12/22/16 04:30 04:30 04:30 Gran % Lymph # (Auto) VBG Lactic Acid 2.3 H Potassium 2.9 L* Chloride 95 L Carbon Dioxide 21 L Anion Gap 17.0 H Glucose 315 H Hemoglobin A1c 8.9 H Calcium 8.0 L Phosphorus 1.7 L Triglycerides 425 H 12/22/16 04:30 Gran % 79.1 H Lymph # (Auto) 1.4 L VBG Lactic Acid Potassium Chloride Carbon Dioxide Anion Gap Glucose Hemoglobin A1c Calcium Phosphorus Triglycerides Meds: Medications Acetaminophen (Tylenol) 650 mg PO Q6HP PRN PRN Reason: PAIN/FEVER > 101 Last Admin: 12/22/16 10:21 Dose: 650 mg Albuterol/Ipratropium (Duoneb) 3 ml NEB Q6HRT PRN PRN Reason: Shortness Of Breath Or Wheezing Cetirizine HCl (Zyrtec) 10 mg PO HS [facility] Last Admin: 12/21/16 22:47 Dose: 10 mg Clonidine HCl (Catapres) 0.1 mg PO Q4HP PRN PRN Reason: Hypertension Last Admin: 12/22/16 05:15 Dose: 0.1 mg Dextrose (Dextrose 50%) 0 ml IV UD PRN PRN Reason: Hypoglycemia Diagnostic Test (Pha) (Accu-Chek) 1 each FS ACHS [facility] Last Admin: 12/22/16 15:22 Dose: 1 each Heparin Sodium (Porcine) (Heparin) 5,000 unit SQ Q12 [facility] Last Admin: 12/22/16 15:34 Dose: 5,000 unit Ciprofloxacin (Cipro) 400 mg in 200 mls @ 200 mls/hr IV Q12H [facility] Last Admin: 12/22/16 12:54 Dose: 200 mls/hr Metronidazole (Flagyl) 500 mg in 100 mls @ 100 mls/hr IV Q8H [facility] Last Admin: 12/22/16 15:33 Dose: 100 mls/hr Sodium Chloride (Sodium Chloride 0.9%) 1,000 mls @ 100 mls/hr IV .Q10H [facility] Last Admin: 12/22/16 12:55 Dose: 100 mls/hr Insulin Glargine (Lantus) 20 unit SQ BID [facility] Insulin Human Lispro (Humalog) 0 unit SQ ACHS [facility] PRN Reason: Protocol Lidocaine HCl (Xylocaine Jel 2%) 1 dose TOPICAL TID [facility] Last Admin: 12/22/16 15:33 Dose: 1 dose Magnesium Hydroxide (Milk Of Magnesia) 30 ml PO DAILYP PRN PRN Reason: Constipation Naloxone HCl (Narcan) 0.1 mg IV Q2MIN PRN PRN Reason: Opiate Reversal Nitroglycerin (Nitro-Bid) 1 gm TOPICAL TID [facility] Last Admin: 12/22/16 15:33 Dose: 1 gm Ondansetron HCl (Zofran) 4 mg IV Q6HP PRN PRN Reason: Nausea And Vomiting Oxybutynin Chloride (Ditropan) 5 mg PO TID [facility] Last Admin: 12/22/16 15:19 Dose: 5 mg Potassium Chloride (Kdur) 40 meq PO QAMCC [facility] Last Admin: 12/22/16 15:17 Dose: 40 meq Potassium/Phosphorus/Sodium (Neutra Phos) 1 packet PO BID [facility] Stop: 12/27/16 09:01 Last Admin: 12/22/16 15:16 Dose: 1 packet Senna (Senokot) 2 tab PO HS [facility] Last Admin: 12/21/16 22:47 Dose: 2 tab Sodium Chloride (Saline Flush) 10 ml IV Q8 [facility] Last Admin: 12/22/16 15:37 Dose: Not Given Zolpidem Tartrate (Ambien) 5 mg PO HSP PRN PRN Reason: Insomnia Medical - PN: A/P - Time Spent With Patient Total time spent is greater than 50% in coordination of care (as documented) at patient's floor/unit and/or counseling patient: - Narrative A/P Narrative: A/P High anion gap Acidosis: Due to lactic acid, improving, lactate is 2.4 this AM Lactic acidosis. : resolving, Rectal pain: LIkely from fissure or hemorrhoids. Hemorrhoids vs Anal Fissure: Topical lidocaine and NTG for now, Gen Surgery consult appreciated, no clear e/o strangulated hermorroid, occult fissure? Constipation: responded to medical treatment, continue same. Diabetes : Resume insulin, sliding scale. glyucose high, increase lantus to 20bid, and mod dose sliding scale. Elevated tprot resolved Hypokalemia: Poor intake and loose stools, replace lytes and monitor. DVT hep sq Diet carb restricted Full code. Medical - PN: Qual - VTE Deep Vein Thrombosis/Pulmonary Embolism Present on Admission: No
[2016-12-22] MEDS: SENNOSIDES 1 TABLET PO SCH (20:29)
[2016-12-22] MEDS: CETIRIZINE 10 MG TABLET PO SCH (20:29)
[2016-12-23] MEDS: INSULIN GLARGINE, HUMAN 1 UNIT/0.01 ML SQ SCH ×2 (00:11→08:45)
[2016-12-23] MEDS: NEUTRA PHOS 1 PACKET PO SCH ×2 (00:12→08:43)
[2016-12-23] MEDS: 0.9 % SODIUM CHLORIDE 10 ML SYRINGE IV SCH ×2 (00:57→05:28)
[2016-12-23] MEDS: 0.9 % SODIUM CHLORIDE 1,000 ML IV SCH ×2 (02:54→10:24)
[2016-12-23] MEDS: metroNIDAZOLE 500 MG/100 ML BAG IV SCH (05:27)
[2016-12-23 06:30] LABS: ALT/SGPT 5 U/l (0-40); Albumin 3.5 gm/dL (3.2-5.2); Albumin/Globulin Ratio 1.1 (1.0-2.3); Alkaline Phosphatase 75 U/L (39-117); Bilirubin,Direct < 0.2 mg/dL (0.0-0.3); Blood Urea Nitrogen 7 mg/dl (8-23); Gamma Glutamyl Transpeptidase 16 U/L (5-36); Magnesium 2.3 mg/dL (1.6-2.5); Uric Acid 2.6 mg/dL (2.5-8.0)
[2016-12-23 08:26] LABS: Basophils # (Auto) 0 K/mcL (0.0-0.3); Basophils % (Auto) 0.6 % (0.0-2.0); Eosinophils # (Auto) 0.1 K/mcL (0.0-0.7); Eosinophils % (Auto) 0.9 % (0.0-7.0); Granulocytes % (Auto) 59.4 % (38.0-78.0); Lymphocytes # (Auto) 2.1 K/mcL (1.5-4.8); Lymphocytes % (Auto) 33.7 % (15.5-49.0); Mean Cell Volume 86.9 fL (80.0-100.0); Mean Corpuscular Hemoglobin 29.5 pg (26.0-34.0); Monocytes # (Auto) 0.3 K/mcL (0.1-0.9); Monocytes % (Auto) 5.4 % (1.0-12.0); Platelet Count 241 K/mcL (140-440); RBC 3.86 M/mcL (4.00-5.20); Red Cell Distribution Width 13.6 % (11.5-14.5)
[2016-12-23] MEDS: CIPROFLOXACIN 400 MG/200 ML BAG IV SCH (08:41)
[2016-12-23] MEDS: LIDOCAINE JEL 2% 1 TUBE 30GM TOPICAL SCH (08:42)
[2016-12-23] MEDS: POTASSIUM CHLORIDE 20 MEQ TABLET PO SCH (08:43)
[2016-12-23] MEDS: HEPARIN 5,000 UNIT/ML VIAL SQ SCH (08:43)
[2016-12-23] MEDS: OXYBUTYNIN CHLORIDE 5 MG TABLET PO SCH (08:43)
[2016-12-23] MEDS: NITROGLYCERIN 1 GM OINT.TOP TOPICAL SCH (08:43)
[2016-12-23] MEDS: INSULIN LISPRO 1 UNIT/0.01 ML UNIT SQ SCH ×2 (08:44→11:26)
--- NOTE | 2016-12-23 09:37 | Discharge Summary ---
Medical - DS: Prov Patient information: Note initiated : 12/23/16 at 9:33 am Service Date, if different from initiated Date: [] Patient: Lisette Guzman 66 y/o F admitted on 12/21/16 for Abd Pain/Lactic Acidosis and Elevated WBC Count. Chief Complaint: [] Date of admission: 12/21/16 14:23 Discharge date: 12/23/16 Primary care physician: Gerard Meyer Admitting clinician: Sunny Roche Consults: 12/21/16 14:43 Consult to Physician [CONS] Routine Comment: Consulting Provider: Arthur Euceda Reason For Exam: Physician to Consult Discharging clinician: Sunny Roche Medical - DS: Meds - Discharge Medications Prescriptions: Docusate Sodium 100 mg PO BID #60 capsule Lidocaine 5% Oint 1 dose TOPICAL QIDP #2 tube metFORMIN HCL [Glucophage] 1,000 mg PO BID #60 tablet Active and Home Medications: Home Medications Cetirizine HCl [24Hour Allergy] 10 mg PO HS 12/21/16 [History Confirmed Last Taken Unknown] Insulin Glargine, Human [Lantus] 17 unit SC BID 12/21/16 [History Confirmed Last Taken Unknown] Oxybutynin Chloride [Ditropan] 5 mg PO TID 12/21/16 [History Confirmed 12/21/16 Last Taken Unknown] metFORMIN [Glucophage] 500 mg PO BIDCC 12/21/16 [History Confirmed 12/21/16 Last Taken Unknown] Medical - DS: Hosp Hospital course: Mr. Guzman is a 66 year old Female with h/o DM, presented to the ER with complaints of significant rectal pain, constipation x 2 days apparently after eating a box of popcorn. The patient has severe pain in the rectal region, Elevated wbc, lactic acid. C T showing stool in the rectal vault No ischemic colitis, or infectious colitis. no perforation. CXR was neg, UA neg. She was admitted to the hospital for further management. Rectal Pain: etiology uncertain, but a mild rectal fissure was possible, Pt has hemorrhoids but they did not appear to be strangulated. Surgery was consulted who helped with the management of the case. Gastrografin enema was done which was negative. Patient was treated with NTG and Lidocaine gel to help with the rectal/ anal spams, she responded to treatment well. On d/c she will be discharged only on lidocaine gel to help her mange the perirectal pain till she can defecate well. Pt has been advised to take sitz bath 4 times a day. HAGMA/ : likely from mild perirectal infection and poor intake. Responded well to fluids and antibiotics, will complete course of abx with cipro and flagyl for additional 5 days. Constipation: Likely from popcorn use and rectal spasms, Docusate bid has been recommended for now, high fiber diet. DM : Uncontrolled, was on glagine 17bid, and metforin 500mg bid. A1c was 8.9, dose of glargine increased to 20units bid and metfomin to 1000mg bid. Pt advised to follow up with PCP in 1 week HLD: High TG noted on labs, patient is not on any medication as far as her home list provided shows. She will likely benefit from statin therapy. Will leave this to the discretion of her PCP At discharge the patient was having good BM and able to tolerate PO well. Discharge diagnosis: rectal pain, Constipation. - Time Spent with Patient Total time spent providing and/or coordinating discharge services: Greater than 30 minutes Medical - DS: Exam - Constitutional Vitals: Vital Signs Temp Pulse Pulse Resp BP Pulse Ox 12/23/16 07:44 59 L 18 96 12/23/16 07:30 98.0 F 59 L 18 172/71 96 12/23/16 07:21 85 96 12/23/16 04:00 98.5 F 65 16 157/58 99 12/23/16 00:00 98.7 F 69 16 159/72 98 12/22/16 20:00 98.5 F 70 16 175/67 99 12/22/16 16:00 98.4 F 20 163/79 97 12/22/16 12:00 97.5 F 20 181/69 98 12/22/16 10:35 67 98 Intake and Output 12/22/16 12/23/16 12/23/16 21:59 05:59 13:59 Intake Total 1000 / 1000 1900 / 1900 323 / 323 Output Total Balance 1000 / 1000 1899 / 189 323 / 323 Intake: IV 100 / 100 1300 / 1300 323 / 323 Sodium Chloride 0.9% 1, 1000 / 1000 323 / 323 000 ml @ 100 mls/hr IV . Q10H PAT Rx#:[id number] Oral 900 / 900 600 / 600 Output: # of times incontinent of 1 / 1 urine Other: # Bowel Movements 1 1 # of times incontinent of 1 1 Bowels Weight 125 lb Additional comments: Constitutional; Afebrile, cooperative, alert, not in distress. Eyes- No icterus, , No periorbital swelling Ears- Ext ear normal, hearing normal to conversation. Neck- Midline trachea, supple Respiratory system: Air Entry equal on both sides, No crackles or wheezing, no rhonchi. CVS- Rate rhythm regular, S1,S2 heard, no gallop, no rub. Abdomen- Soft nontender abdomen, no organomegaly, no tenderness, no guarding or rigidity, [employer]- AOOx3, moving all extremities, no gross focal deficit noted. Medical - DS: Data Labs on day of discharge: Labs from last 24 hours 12/23/16 12/23/16 12/23/16 04:59 04:59 04:59 WBC 6.2 RBC 3.86 L Hgb 11.4 L Hct 33.5 L MCV 86.9 MCH 29.5 MCHC 34.0 RDW 13.6 Plt Count 241 MPV 7.9 Gran % 59.4 Lymph % (Auto) 33.7 [place] % (Auto) 5.4 Eos % (Auto) 0.9 Baso % (Auto) 0.6 Gran # 3.7 Lymph # (Auto) 2.1 [place] # (Auto) 0.3 Eos # (Auto) 0.1 Baso # (Auto) 0 VBG Lactic Acid 1.2 Sodium 140 Potassium 3.3 Chloride 108 Carbon Dioxide 20 L Anion Gap 12.0 BUN 7 L Creatinine 0.7 GFR Calculation 91 Glucose 173 H Uric Acid 2.6 Calcium 7.8 L Phosphorus 1.9 L Magnesium 2.3 Total Bilirubin 0.4 Direct Bilirubin < 0.2 GGT 16 AST 11 ALT 5 Alkaline Phosphatase 75 Lactate Dehydrogenase 161 Total Protein 6.6 Albumin 3.5 Globulin 3.1 Albumin/Globulin Ratio 1.1 Triglycerides 395 H Medical - DS: A/P - Patient/Caregiver Discharge Instructions Activity: increase activity as tolerated Diet: Consistent Carbohydrate Additional Instructions: Go to ER if worsening pain, constipation or any other concrning feature Your dose of insulin lantus has been increased from 17 units to 20 units, dose of metformin increased from 500mg bid to 1000mg twice daily Please take sitz bath four times a day Follow up with your PCP in 1 week Prescriptions: Docusate Sodium 100 mg PO BID #60 capsule Lidocaine 5% Oint 1 dose TOPICAL QIDP #2 tube metFORMIN HCL [Glucophage] 1,000 mg PO BID #60 tablet - Follow up Plan Follow up with: Gerard Meyer MD [Primary Care Provider] - Disposition: Home, Self-Care Prognosis: Fair Rehab Potential: Fair I certify that the patient requires SNF services: No Overall status at discharge: patient is progressing back to baseline Medical - DS: Qual - VTE Deep Vein Thrombosis/Pulmonary Embolism Present on Admission: No
== END 2016-12-23 13:15 | disposition home or self-care (01) | DRG 392 ==
LOC: ED 07:16 → MEDSUR 14:23
PROVIDERS: ADMIT Internal Medicine; ATTEND Internal Medicine